=== PATIENT | female | born 1955 | race Two or more races ===

== ENCOUNTER 2022-10-23 16:57 | Inpatient (IN) | payer MEDICARE ==
[~2022-10-23] VITALS: Ht 165.1 cm; Wt 38.9 kg
[2022-10-23] MEDS ORDERED: SODIUM CHLORIDE 0.9% 1,000 ML IV ONE (17:30)
[2022-10-23 18:28] LABS: Basophils # (auto) 0 10 ^3/uL (0-0.2); Basophils % (auto) 0.6 % (0.0-2.0); Eosinophils # (auto) 0.1 10 ^3/uL (0-0.8); Eosinophils % (auto) 1.3 % (0.0-7.0); Hematocrit 35.5 % (36.0-46.0); Lymphocytes # (auto) 1.5 10 ^3/uL (0.4-5.4); Lymphocytes % (auto) 25.3 % (10.0-50.0); Mean Corpuscular Hemoglobin 29.4 pg (28.0-32.0); Mean Corpuscular Hgb Conc. 33.8 g/dL (32.0-36.0); Monocytes # (auto) 0.5 10 ^3/uL (0-1.3); Monocytes % (auto) 8.5 % (0.0-12.0); Neutrophils # (auto) 3.9 10 ^3/uL (1.6-8.6); Neutrophils % (auto) 64.3 % (37.0-80.0); Nucleated Red Blood Cells % 0.2 %; Red Blood Cells 4.08 10^6/uL (4.0-5.20); Red Cell Distribution Width 14.3 % (11.8-14.3); White Blood Cell 6.1 10^3/uL (4.4-10.8)
[2022-10-23 18:38] LABS: Albumin 3.5 g/dL (3.4-5.0); Calcium 8.4 mg/dL (8.5-10.1); Potassium 4.8 mmol/L (3.5-5.1)
[2022-10-23 18:43] LABS: Bilirubin, Total 0.4 mg/dL (0.2-1.0); Total Protein 7.1 g/dL (6.4-8.2)
[2022-10-23] MEDS ORDERED: LORazepam 2MG/ML-1ML VIAL IM ONE (20:45)
[2022-10-24] MEDS ORDERED: ACETAMINOPHEN 325 MG TAB PO PRN (04:15)
[2022-10-24] MEDS ORDERED: NITROGLYCERIN 0.4 MG SL TAB SL PRN (04:15)
[2022-10-24] MEDS ORDERED: MORPHINE SULFATE INJ 2 MG/ml SYRG IV PRN (04:15)
[2022-10-24 05:43] LABS: Basophils # (auto) 0 10 ^3/uL (0-0.2); Basophils % (auto) 0.5 % (0.0-2.0); Eosinophils # (auto) 0.1 10 ^3/uL (0-0.8); Eosinophils % (auto) 2.1 % (0.0-7.0); Hematocrit 37.4 % (36.0-46.0); Hemoglobin 12.3 g/dL (12.2-16.2); Lymphocytes # (auto) 2.1 10 ^3/uL (0.4-5.4); Lymphocytes % (auto) 39.2 % (10.0-50.0); Mean Corpuscular Hemoglobin 28.7 pg (28.0-32.0); Mean Corpuscular Hgb Conc. 32.9 g/dL (32.0-36.0); Mean Corpuscular Volume 87.4 fL (80.0-100.0); Monocytes # (auto) 0.5 10 ^3/uL (0-1.3); Monocytes % (auto) 9.9 % (0.0-12.0); Neutrophils # (auto) 2.5 10 ^3/uL (1.6-8.6); Neutrophils % (auto) 48.3 % (37.0-80.0); Nucleated Red Blood Cells % 0.2 %; Red Blood Cells 4.28 10^6/uL (4.0-5.20); Red Cell Distribution Width 14.8 % (11.8-14.3); White Blood Cell 5.3 10^3/uL (4.4-10.8)
[2022-10-24] MEDS: SODIUM CHLOR 0.9% PF (SALINE LOCK) 10ML VIAL/SYR IV SCH ×3 (06:00→22:10)
[2022-10-24 06:01] LABS: Albumin 3.1 g/dL (3.4-5.0); BUN/Creatinine Ratio 22.1; Calcium 8.3 mg/dL (8.5-10.1); Potassium 4.3 mmol/L (3.5-5.1)
[2022-10-24 06:12] LABS: Bilirubin, Total 0.4 mg/dL (0.2-1.0); Total Protein 6.3 g/dL (6.4-8.2)
[2022-10-24] MEDS: ZINC SULFATE 220mg CAP or TAB PO SCH (10:08)
[2022-10-24] MEDS: MULTIPLE VITAMIN TAB PO SCH (10:08)
[2022-10-24] MEDS: ASCORBIC ACID 500 MG TAB PO SCH ×2 (10:08→22:10)
[2022-10-24] MEDS: ENOXAPARIN SOD 30 MG/0.3 ML SYRINGE SC SCH (10:08)
[2022-10-24] MEDS: HYDROcodone-ACET 5/325MG TAB PO PRN ×2 (14:00→23:55)
[2022-10-24 22:00] VITALS: BP 152/102
[2022-10-24] MEDS: LORazepam 0.5 MG TAB PO PRN (22:10)
[2022-10-24] MEDS ORDERED: ATOM18CA PO (22:44)
[2022-10-24] MEDS ORDERED: VENL-194 PO (22:44)
[2022-10-25 05:00] VITALS: BP 144/82
[2022-10-25] MEDS: SODIUM CHLOR 0.9% PF (SALINE LOCK) 10ML VIAL/SYR IV SCH ×3 (05:17→23:30)
[2022-10-25 05:31] LABS: Basophils # (auto) 0 10 ^3/uL (0-0.2); Basophils % (auto) 0.5 % (0.0-2.0); Eosinophils # (auto) 0.1 10 ^3/uL (0-0.8); Eosinophils % (auto) 2.4 % (0.0-7.0); Hematocrit 40.4 % (36.0-46.0); Hemoglobin 13.2 g/dL (12.2-16.2); Lymphocytes # (auto) 2.1 10 ^3/uL (0.4-5.4); Lymphocytes % (auto) 43.1 % (10.0-50.0); Mean Corpuscular Hemoglobin 28.4 pg (28.0-32.0); Mean Corpuscular Hgb Conc. 32.7 g/dL (32.0-36.0); Mean Corpuscular Volume 86.8 fL (80.0-100.0); Monocytes # (auto) 0.5 10 ^3/uL (0-1.3); Monocytes % (auto) 10.7 % (0.0-12.0); Neutrophils # (auto) 2.1 10 ^3/uL (1.6-8.6); Neutrophils % (auto) 43.3 % (37.0-80.0); Nucleated Red Blood Cells % 0.1 %; Red Blood Cells 4.66 10^6/uL (4.0-5.20); Red Cell Distribution Width 14.5 % (11.8-14.3); White Blood Cell 4.9 10^3/uL (4.4-10.8)
[2022-10-25 05:41] LABS: Albumin 3.4 g/dL (3.4-5.0); Calcium 9.2 mg/dL (8.5-10.1); Potassium 4.3 mmol/L (3.5-5.1)
[2022-10-25 05:47] LABS: BUN/Creatinine Ratio 16.9; Bilirubin, Total 0.6 mg/dL (0.2-1.0); Total Protein 6.9 g/dL (6.4-8.2)
[2022-10-25] MEDS: HYDROcodone-ACET 5/325MG TAB PO PRN (06:36)
[2022-10-25 08:00] VITALS: BP 164/74
[2022-10-25] MEDS ORDERED: DexAMETHasone SOD PHOS 10MG/1ML VIAL INJ IV ONE (08:45)
[2022-10-25 08:51] VITALS: BP 164/74
[2022-10-25] MEDS: ASCORBIC ACID 500 MG TAB PO SCH ×2 (09:44→23:29)
[2022-10-25] MEDS: ZINC SULFATE 220mg CAP or TAB PO SCH (09:44)
[2022-10-25] MEDS: MULTIPLE VITAMIN TAB PO SCH (09:45)
[2022-10-25] MEDS: PANTOPRAZOLE 40 MG TAB PO SCH (09:45)
[2022-10-25] MEDS: ENOXAPARIN SOD 30 MG/0.3 ML SYRINGE SC SCH (09:46)
[2022-10-25] MEDS ORDERED: DexAMETHasone SOD PHOS 10MG/1ML VIAL INJ IV SCH (12:00)
[2022-10-25] MEDS ORDERED: methylPREDNISolone SOD SUCC 40 MG/ML VL IV SCH (12:00)
[2022-10-25 13:00] VITALS: BP 159/91
[2022-10-25] MEDS: MORPHINE SULFATE INJ 2 MG/ml SYRG IV PRN ×3 (14:11→22:46)
[2022-10-25 17:04] VITALS: BP 138/81
[2022-10-25] MEDS: methylPREDNISolone SOD SUCC 1,000 MG in SODIUM CHL 0.9% 250 ML IV SCH (18:49)
[2022-10-25] MEDS: LORazepam 0.5 MG TAB PO PRN (22:15)
[2022-10-25] MEDS: ONDANSETRON HCL 4 MG/2 ML VIAL IV PRN (22:47)
[2022-10-26] MEDS: MORPHINE SULFATE INJ 2 MG/ml SYRG IV PRN ×2 (02:53→10:25)
[2022-10-26] MEDS: ONDANSETRON HCL 4 MG/2 ML VIAL IV PRN (02:54)
[2022-10-26] MEDS: SODIUM CHLOR 0.9% PF (SALINE LOCK) 10ML VIAL/SYR IV SCH ×3 (05:43→22:00)
[2022-10-26 06:01] VITALS: BP 153/6
[2022-10-26] MEDS: LORazepam 0.5 MG TAB PO PRN ×3 (06:22→22:37)
[2022-10-26 09:00] VITALS: BP 132/61
[2022-10-26] MEDS: ENOXAPARIN SOD 30 MG/0.3 ML SYRINGE SC SCH (10:23)
[2022-10-26] MEDS: MULTIPLE VITAMIN TAB PO SCH (10:23)
[2022-10-26] MEDS: ZINC SULFATE 220mg CAP or TAB PO SCH (10:24)
[2022-10-26] MEDS: ASCORBIC ACID 500 MG TAB PO SCH ×2 (10:24→22:36)
[2022-10-26] MEDS: PANTOPRAZOLE 40 MG TAB PO SCH (10:24)
[2022-10-26 13:00] VITALS: BP 112/56
[2022-10-26] MEDS: methylPREDNISolone SOD SUCC 1,000 MG in SODIUM CHL 0.9% 250 ML IV SCH (15:09)
[2022-10-26 17:00] VITALS: BP 125/58
[2022-10-26 22:00] VITALS: BP 113/51
[2022-10-26] MEDS: DOCUSATE SOD 100 MG CAP PO PRN (22:39)
[2022-10-27 05:00] VITALS: BP 121/45
[2022-10-27] MEDS: SODIUM CHLOR 0.9% PF (SALINE LOCK) 10ML VIAL/SYR IV SCH ×3 (06:00→21:30)
[2022-10-27] MEDS: MORPHINE SULFATE INJ 2 MG/ml SYRG IV PRN ×4 (06:35→21:22)
[2022-10-27 08:30] VITALS: BP 126/53
[2022-10-27] MEDS: ZINC SULFATE 220mg CAP or TAB PO SCH (10:31)
[2022-10-27] MEDS: ENOXAPARIN SOD 30 MG/0.3 ML SYRINGE SC SCH (10:31)
[2022-10-27] MEDS: MULTIPLE VITAMIN TAB PO SCH (10:31)
[2022-10-27] MEDS: ASCORBIC ACID 500 MG TAB PO SCH ×2 (10:32→21:25)
[2022-10-27] MEDS: PANTOPRAZOLE 40 MG TAB PO SCH (10:32)
[2022-10-27] MEDS: methylPREDNISolone SOD SUCC 1,000 MG in SODIUM CHL 0.9% 250 ML IV SCH (15:04)
[2022-10-27 16:56] VITALS: BP 130/86
[2022-10-27 21:30] VITALS: BP 158/58
[2022-10-28] MEDS: LORazepam 0.5 MG TAB PO PRN ×2 (02:34→21:00)
[2022-10-28 02:47] LABS: Urine Bacteria NONE SEEN /hpf (None Seen); Urine Blood Negative /uL (Negative); Urine Specific Gravity 1.025 (1.001-1.035); Urine WBC <1 /hpf (0 - 5)
[2022-10-28 05:00] VITALS: BP 141/68
[2022-10-28] MEDS: SODIUM CHLOR 0.9% PF (SALINE LOCK) 10ML VIAL/SYR IV SCH ×3 (06:09→23:56)
[2022-10-28 06:40] LABS: Basophils # (auto) 0 10 ^3/uL (0-0.2); Basophils % (auto) 0.2 % (0.0-2.0); Eosinophils # (auto) 0 10 ^3/uL (0-0.8); Hematocrit 40.2 % (36.0-46.0); Hemoglobin 13.6 g/dL (12.2-16.2); Lymphocytes # (auto) 0.9 10 ^3/uL (0.4-5.4); Lymphocytes % (auto) 13.9 % (10.0-50.0); Mean Corpuscular Hemoglobin 28.7 pg (28.0-32.0); Mean Corpuscular Hgb Conc. 33.8 g/dL (32.0-36.0); Monocytes # (auto) 0.3 10 ^3/uL (0-1.3); Monocytes % (auto) 4.2 % (0.0-12.0); Neutrophils # (auto) 5.1 10 ^3/uL (1.6-8.6); Neutrophils % (auto) 81.7 % (37.0-80.0); Nucleated Red Blood Cells % 0.1 %; Red Blood Cells 4.72 10^6/uL (4.0-5.20); Red Cell Distribution Width 14.8 % (11.8-14.3); White Blood Cell 6.3 10^3/uL (4.4-10.8)
[2022-10-28 06:49] LABS: INR 1.06 (0.9-1.15); Partial Thromboplastin Time 25.8 sec (24.6-33.4)
[2022-10-28 06:53] LABS: BUN/Creatinine Ratio 56.1; Calcium 8.9 mg/dL (8.5-10.1); Magnesium 2.4 mg/dL (1.6-2.6); Potassium 4.4 mmol/L (3.5-5.1)
[2022-10-28 09:00] VITALS: BP 153/64
[2022-10-28] MEDS: MULTIPLE VITAMIN TAB PO SCH (10:00)
[2022-10-28] MEDS ORDERED: THROMBIN (BOVINE) 5000 UNIT SOL VIAL ONE (10:00)
[2022-10-28] MEDS ORDERED: GELATIN 1 SPONGE SIZE 100 TOP ONE (10:00)
[2022-10-28] MEDS: ENOXAPARIN SOD 30 MG/0.3 ML SYRINGE SC SCH (10:00)
[2022-10-28] MEDS: PANTOPRAZOLE 40 MG TAB PO SCH (10:00)
[2022-10-28] MEDS: ASCORBIC ACID 500 MG TAB PO SCH ×2 (10:00→22:00)
[2022-10-28] MEDS: ZINC SULFATE 220mg CAP or TAB PO SCH (10:00)
[2022-10-28] MEDS ORDERED: ceFAZolin 1GM/50ML 100 ML IV ONE (10:22)
[2022-10-28] MEDS ORDERED: fentaNYL CITRATE 100 MCG/2 ML VL ONE (10:54)
[2022-10-28] MEDS ORDERED: MIDAZOLAM HCL 2MG/2ML 2ml VIAL (1mg/ml) ONE (10:55)
[2022-10-28] MEDS ORDERED: fentaNYL CITRATE 10 ML ONE (10:59)
[2022-10-28] MEDS ORDERED: ONDANSETRON HCL 4 MG/2 ML VIAL IV PRN (15:30)
[2022-10-28] MEDS ORDERED: PHENYLEPHRINE HCL 10 MG/ML VL ONE (16:02)
[2022-10-28] MEDS ORDERED: SODIUM CHLORIDE LOCK 10 ML ONE (16:02)
[2022-10-28] MEDS ORDERED: PROPOFOL 10 MG/ML 20 ML IV ONE (16:02)
[2022-10-28] MEDS ORDERED: LABETALOL HCL 5 MG/ML 4ML SYRINGE IV ONE (16:37)
[2022-10-28] MEDS: LABETALOL HCL 5 MG/ML 4ML SYRINGE IV PRN (16:39)
[2022-10-28] MEDS ORDERED: GLYCOPYRROLATE 0.2 MG/ML 1ML VIAL ONE (16:40)
[2022-10-28] MEDS ORDERED: ROCURONIUM 10MG/ML 10ML VIAL IV ONE (16:41)
[2022-10-28] MEDS: HYDROmorphone HCL 2 MG/ML VL/or syr IV PRN ×3 (16:48→17:15)
[2022-10-28] MEDS: methylPREDNISolone SOD SUCC 1,000 MG in SODIUM CHL 0.9% 250 ML IV SCH (18:59)
[2022-10-28 20:00] VITALS: BP 158/60
[2022-10-28 22:00] VITALS: BP_SYST 158; BP_DIAS 56; BP_DIAS 60
[2022-10-28] MEDS: MORPHINE SULFATE INJ 2 MG/ml SYRG IV PRN (22:14)
[2022-10-29] MEDS: MORPHINE SULFATE INJ 2 MG/ml SYRG IV PRN ×4 (04:15→22:09)
[2022-10-29 05:00] VITALS: BP 149/79
[2022-10-29] MEDS: SODIUM CHLOR 0.9% PF (SALINE LOCK) 10ML VIAL/SYR IV SCH ×2 (06:00→14:00)
[2022-10-29] MEDS: ZINC SULFATE 220mg CAP or TAB PO SCH (09:16)
[2022-10-29] MEDS: PANTOPRAZOLE 40 MG TAB PO SCH (09:16)
[2022-10-29] MEDS: MULTIPLE VITAMIN TAB PO SCH (09:16)
[2022-10-29] MEDS: ASCORBIC ACID 500 MG TAB PO SCH ×2 (09:16→22:00)
[2022-10-29] MEDS: VENLAFAXINE HCL 37.5mg XR cap PO SCH (09:17)
[2022-10-29 10:04] VITALS: BP 190/84
[2022-10-29] MEDS: LABETALOL HCL 5 MG/ML 4ML SYRINGE IV PRN (14:39)
[2022-10-29 14:58] VITALS: BP 176/78
[2022-10-29] MEDS: methylPREDNISolone SOD SUCC 1,000 MG in SODIUM CHL 0.9% 250 ML IV SCH (16:45)
[2022-10-29 17:39] VITALS: BP 153/65
[2022-10-29] MEDS: LORazepam 0.5 MG TAB PO PRN (21:35)
[2022-10-29 22:33] VITALS: BP 152/73
[2022-10-30] MEDS: SODIUM CHLOR 0.9% PF (SALINE LOCK) 10ML VIAL/SYR IV SCH ×4 (01:36→22:16)
[2022-10-30] MEDS: MORPHINE SULFATE INJ 2 MG/ml SYRG IV PRN ×4 (02:21→22:16)
[2022-10-30] MEDS: LABETALOL HCL 5 MG/ML 4ML SYRINGE IV PRN (04:29)
[2022-10-30 05:14] VITALS: BP 178/92
[2022-10-30 09:00] VITALS: BP 171/81
[2022-10-30] MEDS: ZINC SULFATE 220mg CAP or TAB PO SCH (10:15)
[2022-10-30] MEDS: MULTIPLE VITAMIN TAB PO SCH (10:15)
[2022-10-30] MEDS: ASCORBIC ACID 500 MG TAB PO SCH ×2 (10:15→22:15)
[2022-10-30] MEDS: PANTOPRAZOLE 40 MG TAB PO SCH (10:15)
[2022-10-30] MEDS: VENLAFAXINE HCL 37.5mg XR cap PO SCH (10:16)
[2022-10-30 13:00] VITALS: BP 149/67
[2022-10-30] MEDS: ONDANSETRON HCL 4 MG/2 ML VIAL IV PRN (14:48)
[2022-10-30 17:00] VITALS: BP 139/61
[2022-10-30 22:00] VITALS: BP 124/60
[2022-10-31 05:00] VITALS: BP 131/60
[2022-10-31] MEDS: MORPHINE SULFATE INJ 2 MG/ml SYRG IV PRN ×4 (05:04→20:13)
[2022-10-31] MEDS: SODIUM CHLOR 0.9% PF (SALINE LOCK) 10ML VIAL/SYR IV SCH ×3 (05:08→22:05)
[2022-10-31 08:57] VITALS: BP 169/81
[2022-10-31] MEDS: MULTIPLE VITAMIN TAB PO SCH (09:26)
[2022-10-31] MEDS: ZINC SULFATE 220mg CAP or TAB PO SCH (09:27)
[2022-10-31] MEDS: PANTOPRAZOLE 40 MG TAB PO SCH (09:27)
[2022-10-31] MEDS: VENLAFAXINE HCL 37.5mg XR cap PO SCH (09:29)
[2022-10-31] MEDS: ASCORBIC ACID 500 MG TAB PO SCH ×2 (09:30→21:59)
[2022-10-31 12:33] VITALS: BP 148/54
[2022-10-31] MEDS: ONDANSETRON HCL 4 MG/2 ML VIAL IV PRN ×2 (15:04→20:11)
[2022-10-31 16:39] VITALS: BP 155/73
[2022-10-31 22:00] VITALS: BP 134/70
[2022-11-01] MEDS: ONDANSETRON HCL 4 MG/2 ML VIAL IV PRN (02:28)
[2022-11-01] MEDS: MORPHINE SULFATE INJ 2 MG/ml SYRG IV PRN ×4 (02:31→20:59)
[2022-11-01 05:00] VITALS: BP 134/78
[2022-11-01] MEDS: SODIUM CHLOR 0.9% PF (SALINE LOCK) 10ML VIAL/SYR IV SCH ×2 (07:00→14:00)
[2022-11-01 09:00] VITALS: BP 138/48
[2022-11-01] MEDS: DOCUSATE SOD 100 MG CAP PO PRN (10:14)
[2022-11-01] MEDS: PANTOPRAZOLE 40 MG TAB PO SCH (10:14)
[2022-11-01] MEDS: ZINC SULFATE 220mg CAP or TAB PO SCH (10:15)
[2022-11-01] MEDS: ASCORBIC ACID 500 MG TAB PO SCH ×2 (10:15→22:26)
[2022-11-01] MEDS: MULTIPLE VITAMIN TAB PO SCH (10:15)
[2022-11-01] MEDS: VENLAFAXINE HCL 37.5mg XR cap PO SCH (10:15)
[2022-11-01 13:00] VITALS: BP 115/54
[2022-11-01] MEDS: LACTULOSE 20Gm/30ML SOLN PO SCH (16:17)
[2022-11-01 17:00] VITALS: BP 130/76
[2022-11-01 20:10] VITALS: BP 141/67
[2022-11-01 22:00] VITALS: BP 141/67
[2022-11-01] MEDS: DOCUSATE SOD 100 MG CAP PO SCH (22:26)
[2022-11-02] VITALS (7 sets, daily range): BP systolic 109–125; BP diastolic 54–65
[2022-11-02] MEDS: MORPHINE SULFATE INJ 2 MG/ml SYRG IV PRN ×5 (01:19→21:35)
[2022-11-02] MEDS: SODIUM CHLOR 0.9% PF (SALINE LOCK) 10ML VIAL/SYR IV SCH ×4 (01:20→21:33)
[2022-11-02] MEDS: LACTULOSE 20Gm/30ML SOLN PO SCH (10:15)
[2022-11-02] MEDS: ZINC SULFATE 220mg CAP or TAB PO SCH (10:16)
[2022-11-02] MEDS: VENLAFAXINE HCL 37.5mg XR cap PO SCH (10:16)
[2022-11-02] MEDS: DOCUSATE SOD 100 MG CAP PO SCH ×2 (10:16→21:34)
[2022-11-02] MEDS: MULTIPLE VITAMIN TAB PO SCH (10:17)
[2022-11-02] MEDS: ASCORBIC ACID 500 MG TAB PO SCH ×2 (10:17→21:34)
[2022-11-02] MEDS: PANTOPRAZOLE 40 MG TAB PO SCH (10:17)
[2022-11-03] MEDS: MORPHINE SULFATE INJ 2 MG/ml SYRG IV PRN ×5 (01:22→22:27)
[2022-11-03 05:00] VITALS: BP 118/49
[2022-11-03] MEDS: SODIUM CHLOR 0.9% PF (SALINE LOCK) 10ML VIAL/SYR IV SCH ×3 (06:00→22:00)
[2022-11-03 09:00] VITALS: BP 122/68
[2022-11-03] MEDS: MULTIPLE VITAMIN TAB PO SCH (10:23)
[2022-11-03] MEDS: PANTOPRAZOLE 40 MG TAB PO SCH (10:23)
[2022-11-03] MEDS: LACTULOSE 20Gm/30ML SOLN PO SCH (10:23)
[2022-11-03] MEDS: ZINC SULFATE 220mg CAP or TAB PO SCH (10:23)
[2022-11-03] MEDS: VENLAFAXINE HCL 37.5mg XR cap PO SCH (10:23)
[2022-11-03] MEDS: DOCUSATE SOD 100 MG CAP PO SCH ×2 (10:23→22:00)
[2022-11-03] MEDS: ASCORBIC ACID 500 MG TAB PO SCH ×2 (10:23→22:00)
[2022-11-03 13:00] VITALS: BP 131/85
[2022-11-03 16:46] VITALS: BP 123/76
[2022-11-03 20:00] VITALS: BP 122/62
[2022-11-03] MEDS ORDERED: FLEET ENEMA(ADULT) 135 ML PR ONE (20:36)
[2022-11-04] MEDS: MORPHINE SULFATE INJ 2 MG/ml SYRG IV PRN (03:41)
[2022-11-04 05:00] VITALS: BP 114/60
[2022-11-04] MEDS: SODIUM CHLOR 0.9% PF (SALINE LOCK) 10ML VIAL/SYR IV SCH (05:39)
[2022-11-04] MEDS: VENLAFAXINE HCL 37.5mg XR cap PO SCH (09:13)
[2022-11-04] MEDS: PANTOPRAZOLE 40 MG TAB PO SCH (09:14)
[2022-11-04] MEDS: HYDROcodone-ACET 5/325MG TAB PO PRN (09:14)
[2022-11-04 09:18] VITALS: BP 118/47
[2022-11-04] MEDS ORDERED: FLEET ENEMA(ADULT) 135 ML PR ONE (10:00)
== END 2022-11-04 09:20 | DRG 471 ==
LOC: EDBD 16:57 → ER 17:03 → OVERFLOW 10-24 04:12 → WEST WING 10-24 21:14 → TELE-WESTW 10-29 10:48
PROVIDERS: ADMIT Nurse Practitioner Family; ATTEND Internal Medicine Geriatric Medicine
PROC: 0RB30ZZ Excision of Cervical Vertebral Disc, Open Approach (ICD-10-PCS; 2022-10-28)
PROC: 01N10ZZ Release Cervical Nerve, Open Approach (ICD-10-PCS; 2022-10-28)
PROC: 00NW0ZZ Release Cervical Spinal Cord, Open Approach (ICD-10-PCS; 2022-10-28)
PROC: 4A11X4G Monitoring of Peripheral Nervous Electrical Activity, Intraoperative, External Approach (ICD-10-PCS; 2022-10-28)
PROC: 0RG20A0 Fusion of 2 or more Cervical Vertebral Joints with Interbody Fusion Device, Anterior Approach, Anterior Column, Open Approach (ICD-10-PCS; principal; 2022-10-28 12:17)
DX: M48.02 Spinal stenosis, cervical region (principal); G82.50 Quadriplegia, unspecified; G95.89 Other specified diseases of spinal cord; G99.2 Myelopathy in diseases classified elsewhere; R20.2 Paresthesia of skin; M54.12 Radiculopathy, cervical region; G35 Multiple sclerosis; F32.A Depression, unspecified; F41.9 Anxiety disorder, unspecified; J44.9 Chronic obstructive pulmonary disease, unspecified; L89.159 Pressure ulcer of sacral region, unspecified stage; F90.9 Attention-deficit hyperactivity disorder, unspecified type; Z20.822 Contact with and (suspected) exposure to COVID-19; M24.28 Disorder of ligament, vertebrae; E66.9 Obesity, unspecified; Z68.22 Body mass index [BMI] 22.0-22.9, adult; Z83.3 Family history of diabetes mellitus; Z98.84 Bariatric surgery status
CPT/HCPCS: 36415; 70547; 70551; 71045; 72040; 72141; 76000; 80048; 80053; 81001; 83735; 84484; 85025; 85610; 85730; 86850; 86900; 86901; 87426; 93005; 93306; 96360; 96372; 97110; 97116; 97163; 97530; G0378; J0690; J1100; J2250; J2405; J2704; J3490; J7060